=== PATIENT | male | born 1980 | race Caucasian/White ===

== ENCOUNTER 2016-07-18 14:44 | Emergency (ER) | payer SELFPAY | END 2016-07-18 18:10 | disposition home or self-care (01) | LOC: ER1 14:44 | DX: S39.012A Strain of muscle, fascia and tendon of lower back, initial encounter (principal); F17.290 Nicotine dependence, other tobacco product, uncomplicated; V43.62XA Car passenger injured in collision with other type car in traffic accident, initial encounter; Y92.410 Unspecified street and highway as the place of occurrence of the external cause | CPT/HCPCS: 72131; 96372; 99284; J1885 ==

== ENCOUNTER 2020-05-12 11:32 | Emergency (ER) | payer OTHER, MEDICARE ==
[2020-05-12 14:39] LABS: HEMOGLOBIN 15.6 gm/dl (14.0-17.5); RED BLOOD COUNT 5.6 M/UL (4.20-5.50); WHITE BLOOD COUNT 6.7 K/UL (4.5-11.0)
[2020-05-12 15:13] LABS: BUN/CREATININE RATIO 14 (0-10)
[2020-05-12] MEDS ORDERED: DOXYCYCLINE HY100 M2 PO (16:01)
[2020-05-12] MEDS ORDERED: ATROVENT-HFA12.9 GM INH (16:01)
[2020-05-12] MEDS ORDERED: MEDROL DOSEPAK 24 MG PO (16:01)
== END 2020-05-12 16:18 | disposition home or self-care (01) ==
LOC: ER1 11:32
PROVIDERS: Physician Assistant Medical
DX: U07.1 COVID-19 (principal); J12.89 Other viral pneumonia; R42 Dizziness and giddiness; I10 Essential (primary) hypertension; F17.290 Nicotine dependence, other tobacco product, uncomplicated
CPT/HCPCS: 71045; 80053; 84484; 85025; 87040; 93005; 96374; 99285; J2405; J7030